=== PATIENT | male | born 1990 | race Two or more races ===

== ENCOUNTER 2024-11-03 11:17 | Emergency (ER) | payer MEDICAID, OTHER ==
[~2024-11-03] VITALS: Ht 170.2 cm; Wt 96.6 kg
[2024-11-03 12:41] VITALS: BP 135/91; PULSE 78; RESP 16; TEMP 97.8; O2SAT 97
--- NOTE | 2024-11-03 12:44 | ED.PDOC ---
History of Present Illness(SKN HPI Comments staple removal s/o 7 days appendectomy 13 harpreet Chief Complaint: Wound Check Time Seen by MD: 11:43 Primary Care Provider: NONE History of Present Illness: Nurses Notes, Medications, Allergies Allergies: Coded Allergies: NO KNOWN ALLERGIES (Unverified , 11/03/24) Information Source: Patient Mode of Arrival: Ambulatory All Other Systems: Reviewed and Negative (per hpi) Physical Exam General Appearance: No Apparent Distress, Normal HEENT: Normal ENT Inspection, Pharynx Normal, TMs Normal Neck: Full Range of Motion, Non-Tender, Normal, Normal Inspection Respiratory: Chest Non-Tender, Lungs Clear, No Accessory Muscle Use, No Respiratory Distress, Normal Breath Sounds Cardiovascular: No Edema, No JVD, No Murmur, No Gallop, Normal Peripheral Pulses, Regular Rate/Rhythm Breast Exam: Deferred Gastrointestinal: No Organomegaly, Non Tender, No Pulsatile Mass, Normal Bowel Sounds, Soft Genitalia: Deferred Pelvic: Deferred Rectal: Deferred Extremities: No calf tenderness, Normal capillary refill, Normal inspection, Normal range of motion, Non-tender, No pedal edema Musculoskeletal : Apperance: Normal Neurologic: Alert, trolley collector II-XII nml as Tested, No Motor Deficits, Normal Affect, Normal Mood, No Sensory Deficits Cerebellar Function: Normal Reflexes: Normal Skin: Dry, Normal Color, Warm Lymphatic: No Adenopathy Was a procedure done? Was a procedure done?: No Differential Diagnosis (INTG) Differential Diagnosis: Other X-Ray, Labs, Meds, VS Vital Signs Date Time Temp Pulse Resp B/P (MAP) Pulse Ox O2 Delivery O2 Flow Rate FiO2 11/03/24 12:41 78 16 97 Room Air 11/03/24 12:41 97.8 78 16 135/91 (106) 97 97.8 11/03/24 11:44 97.0 78 16 135/91 (106) 97 X-Ray, Labs, Meds, VS Comment removed harpreet using sterile technique no compilations Time of 1ST Reevaluation: 12:44 Reevaluation 1ST: Improved Patient Education/Counseling: Diagnosis, Treatment Family Education/Counseling: Diagnosis, Treatment Departure 1 Departure Time of Disposition: 12:44 Impression: Primary Impression: Encounter for staple removal Disposition: 01 HOME / SELF CARE / HOMELESS Condition: Stable Critical Care Note Critical Care Time?: No Stability Stability form required: No Heart Score Heart Score: Heart Score Response (Comments) Value History N/A 0 EKG N/A 0 Age N/A 0 Risk Factors N/A 0 Troponin N/A 0 Total 0 JEANNETTE HAHN NP Nov 03, 2024 12:44
== END 2024-11-03 12:48 | disposition home or self-care (01) ==
LOC: ER 11:17
DX: Z48.02 Encounter for removal of sutures (principal)